=== PATIENT | male | born 1990 | race Two or more races ===

== ENCOUNTER 2019-08-17 02:27 | Emergency (ER) | payer OTHER ==
[~2019-08-17] VITALS: Ht 172.7 cm; Wt 61.2 kg
[2019-08-17] MEDS ORDERED: VISTARIL50 MG PO (07:03)
== END 2019-08-17 07:16 | disposition home or self-care (01) ==
LOC: ER 02:27
DX: R00.2 Palpitations (principal); F41.8 Other specified anxiety disorders; F43.0 Acute stress reaction

== ENCOUNTER 2019-10-05 15:47 | Outpatient (CLI) | payer OTHER ==
[~2019-10-05 15:47] MED LIST: VISTARIL50 MG PO
== END 2019-10-05 16:01 | disposition home or self-care (01) ==
LOC: LAB 15:47
DX: Z20.828 Contact with and (suspected) exposure to other viral communicable diseases (principal)

== ENCOUNTER 2023-07-27 09:22 | Outpatient (CLI) | payer OTHER | END 2023-07-27 09:31 | disposition home or self-care (01) | LOC: SONOGRAMA 09:22 | DX: R10.13 Epigastric pain (principal); I20.89 Other forms of angina pectoris; I10 Essential (primary) hypertension ==

== ENCOUNTER 2023-07-27 11:14 | Outpatient (CLI) | payer OTHER | END 2023-07-27 11:15 | disposition home or self-care (01) | LOC: LAB 11:14 | PROVIDERS: ATTEND Internal Medicine Cardiovascular Disease | DX: Z12.5 Encounter for screening for malignant neoplasm of prostate (principal); Z12.11 Encounter for screening for malignant neoplasm of colon ==

== ENCOUNTER → 2023-08-16 09:03 | Outpatient (CLI) | payer OTHER ==
[2023-08-16 11:28] LABS: ob NEGATIVE (NEGATIVE)
== END | disposition home or self-care (01) ==
LOC: LAB 09:03
PROVIDERS: ATTEND Internal Medicine Cardiovascular Disease
DX: Z12.5 Encounter for screening for malignant neoplasm of prostate (principal); Z12.11 Encounter for screening for malignant neoplasm of colon

== ENCOUNTER 2025-04-27 07:50 | Emergency (ER) | payer OTHER ==
[~2025-04-27] VITALS: Ht 172.7 cm; Wt 68.0 kg
[2025-04-27 09:22] LABS: BASO % 0.2 % (0.1-1.2); EOS # 0.01 (0.04-0.54); EOS % 0.2 % (0.7-7.0); LYMPH # 1.03 (1.18-3.74); LYMPH % 22.0 % (19.3-53.1); MEAN PLATELET VOLUME 11.50 fl (9.4-12.4); MONO # 0.27 (0.24-0.82); MONO % 5.8 % (4.7-12.5); NEUT # 3.35 (1.56-6.13); NEUT % 71.6 % (34.0-71.1); RED CELL DISTRIBUTION WIDTH 11.5 % (11.6-14.4)
[2025-04-27 09:37] LABS: URINE APPEARANCE Clear; URINE BILIRRUBIN Negative (NEGATIVE); URINE BLOOD Negative; URINE COLOR Dark Yellow; URINE GLUCOSE Negative (NEGATIVE); URINE KETONE 15 (NEGATIVE); URINE LEUKOCYTE Trace; URINE NITRATE Negative; URINE PROTEIN Negative (NEGATIVE); URINE UROBILINOGEN 1.0 E.U./dl
[2025-04-27 09:41] LABS: URINE BACTERIA 4.5 uL (0.0-1933); URINE EPITHELIAL CELLS 1.8 uL (0.0-38.8); URINE WBC 3.6 uL (0.0-23.2)
[2025-04-27 10:39] LABS: URINE CAST 0.28 uL (0.0-1.40); URINE RBC 1.9 uL (0.0-20.8)
[2025-04-27] MEDS ORDERED: CEFTRIAXONE SODIUM 2,000 MG VIAL IV ONE (11:30)
[2025-04-27] MEDS ORDERED: MACROBID 100 M100 MG PO (12:18)
[2025-04-27] MEDS ORDERED: PYRIDIUM200 MG PO (12:18)
[2025-04-27] MEDS ORDERED: CEFTRIAXONE SODIUM 2,000 MG VIAL ONE (13:13)
== END 2025-04-27 15:06 | disposition home or self-care (01) ==
LOC: ER 07:51
PROVIDERS: Preventive Medicine Public Health & General Preventive Medicine
DX: N39.0 Urinary tract infection, site not specified (principal)